=== PATIENT | male | born 1990 | race Caucasian/White ===

== ENCOUNTER 2017-06-01 15:48 | Outpatient (CLI) | payer OTHER ==
[2015-04-08 16:55] VITALS: BP 161/83
--- NOTE | 2017-06-01 18:33 | Diagnostic Imaging Report ---
SABRINA MORENO [facility] [address] [facility].[address] [address] Report Submission Date: Jun 01, 2017 4:16:15 PM CDT Patient Study Name: ADRIAN PACK Date: Jun 01, 2017 3:54:42 PM CDT Modality Type: CR Gender: M Description: CHEST : 86 Institution: [facility] Physician: SABRINA MORENO Examination: PA and lateral chest. History: Evaluate lung rangel. Comparison exams: None provided Findings: PA lateral chest demonstrate a normal cardiac and mediastinal silhouette. No focal infiltrate. No blunting of the costophrenic margins. Osseous structures are appropriate for age. Impression: No acute pulmonary process. Electronically signed on Jun 01, 2017 4:16:15 PM CDT by: Reji RILEY
== END 2017-06-01 16:00 ==
LOC: RAD 15:48
PROVIDERS: ATTEND Physician Assistant
DX: R05 Cough (principal)
CPT/HCPCS: 71020

== ENCOUNTER 2018-09-10 15:31 | Outpatient (CLI) | payer OTHER ==
[2015-04-08 16:55] VITALS: BP 161/83
--- NOTE | 2018-09-10 20:44 | Diagnostic Imaging Report ---
FANNY TREVINO [facility] [address] [facility].[address] [address] Report Submission Date: Sep 10, 2018 4:15:04 PM TOWBOAT ENGINEER Patient Study Name: ADRIAN LINDQUIST Date: Sep 10, 2018 3:37:51 PM TOWBOAT ENGINEER Modality Type: DX Gender: U Description: CHEST 2VIEW : 86 Institution: [facility] Physician: FANNY TREVINO Examination: PA and lateral chest. History: Evaluate lung rangel. cough Comparison exam: None provided. Findings: PA and lateral views of the chest demonstrates a normal cardiac and mediastinal silhouette. No focal infiltrate. No blunting of the costophrenic margins. Osseous structures are appropriate for age. Impression: No acute pulmonary process. Electronically signed on Sep 10, 2018 4:15:04 PM TOWBOAT ENGINEER by: Reji RILEY
== END 2018-09-10 15:33 ==
LOC: RAD 15:31
PROVIDERS: ATTEND Nurse Practitioner Family
DX: R05 Cough (principal); R06.02 Shortness of breath
CPT/HCPCS: 71046

== ENCOUNTER 2018-11-05 15:10 | Emergency (ER) | payer OTHER ==
[2018-11-05 15:30] VITALS: BP 193/88
--- NOTE | 2018-11-05 15:32 | ED Physician Documentation ---
Lower Extremity Injury - HISTORIAN Historian: patient - HPI Stated Complaint: L foot pain Chief Complaint: Foot Injury Onset: hours (1) Where: work Severity: mild Context: fall Associated Symptoms:: popping sensation Modifying Factors:: pain on movement - ROS CONST: no problems MS/SKIN/LYMPH: none - PAST HX Past History: none Immunizations: UTD Allergies/Adverse Reactions: Allergies Allergy/AdvReac Type Severity Reaction Status Date / Time No Known Drug Allergies Allergy Verified 11/05/18 15:27 - SOCIAL HX Smoking History: non-smoker Alcohol Use: none Drug Use: none - FAMILY HX Family History: none - VITAL SIGNS Vital Signs: Vital Signs Temp Pulse Resp BP Pulse Ox 98.5 F 89 16 193/88 99 11/05/18 15:10 11/05/18 15:10 11/05/18 15:10 11/05/18 15:10 11/05/18 15:10 - REVIEWED ASSESSMENTS Nursing Assessment Reviewed: Yes Vitals Reviewed: Yes ED Results Lab/Radiology - Radiology Radiology Impressions: EXAMINATION: FOOT 3 VIEWS OR MORE HISTORY: twisted foot (Hx) COMPARISON: None FINDINGS: There is a nondisplaced fracture of the proximal fifth metatarsal. The joint spaces are preserved. Bone density is normal. IMPRESSION: Nondisplaced proximal fifth metatarsal fracture (Reagan fracture). Electronically signed on Nov 05, 2018 4:12:36 PM CDT by: Chong Disla EXAMINATION: ANKLE 3 VIEWS OR MORE HISTORY: twisted ankle COMPARISON: None FINDINGS: The osseous structures of the ankle are intact and well aligned without acute fracture or dislocation. The joint spaces are preserved. Bone density is normal. A small calcaneal spur is noted. IMPRESSION: No acute fracture or dislocation identified in the ankle. Electronically signed on Nov 05, 2018 4:12:30 PM CDT by: Chong Disla - Orders Orders: ED Orders Category Date Time Status FOOT 3 VIEWS OR MORE [RAD] Stat Exams 11/05/18 Ordered LEFT ANKLE [ANKLE 3 VIEWS OR MORE] [RAD] Stat Exams 11/05/18 Ordered Lower Extremities Injury Phy - Physical Exam General Appearance: no acute distress, alert Hips: N/A: non-tender, normal inspection, normal range of motion, no evidence of injury, bone tenderness, deformity, ecchymosis, limited range of motion, nodules, pain, soft tissue tenderness, swelling, other Legs: N/A: non-tender, normal inspection, normal range of motion, no evidence of injury, abrasions, bone tenderness, deformity, ecchymosis, joint effusion, limited range of motion, nodules, pain, soft tissue tenderness, swelling Knees: N/A: non-tender, normal inspection, normal range of motion, no evidence of injury, bone tenderness, deformity, ecchymosis, joint effusion, nodules, pain , soft tissue tenderness, swelling Ankle: right: limited range of motion, pain, soft tissue tenderness, left: bone tenderness, bilateral: non-tender, normal inspection, normal range of motion, no evidence of injury, ecchymosis, joint effusion, nodules, swelling, other Foot: right foot: non-tender, normal inspection, normal range of motion, no evidence of injury, left foot: bone tenderness, deformity, limited range of motion, pain, soft tissue tenderness, swelling, N/A: ecchymosis, infection, nail injury, nodule Gait: limited by pain Neuro/Vascular/Tendon: no vascular compromise Head/ENT: nml inspection Neck/Back: nml inspection Resp/CVS: chest non-tender, breath sounds nml, heart sounds nml, no resp. distress, lungs clear Abdomen: non-tender Discharge Clincal Impression: Nondisp fracture of fifth left metatarsal bone with routine healing Qualifiers: Fracture type: closed Qualified Code(s): S92.355D - Nondisplaced fracture of fifth metatarsal bone, left foot, subsequent encounter for fracture with routine healing Referrals: Emanuel Pollard MD [Primary Care Provider] - 2 Days Comments: 1. Walking boot - try to stay off foot 2. OTC meds as directed as needed for pain 3. Follow up with Dr Hastings at 945 in am or call out pt at 0830 for co nfirmation [phone] 4. Keep elevated 5. Return to ER for any increasing concerns Condition: Stable Disposition: 01 HOME, SELF-CARE Decision to Admit: NO Date of Decison to Admit: 11/05/18 Decision Time: 16:42
--- NOTE | 2018-11-05 16:18 | Diagnostic Imaging Report ---
ERON JENSEN [facility] [address] [facility] [address] [address] [place], [place]. [address] Report Submission Date: Nov 05, 2018 4:12:30 PM CDT Patient Study Name: ADRIAN LINDQUIST Date: Nov 05, 2018 3:36:00 PM CDT Modality Type: DX Gender: U Description: ANKLE 3 VIEWS OR MORE : 86 Institution: [facility] Physician: ERON EJNSEN EXAMINATION: ANKLE 3 VIEWS OR MORE HISTORY: twisted ankle COMPARISON: None FINDINGS: The osseous structures of the ankle are intact and well aligned without acute fracture or dislocation. The joint spaces are preserved. Bone density is normal. A small calcaneal spur is noted. IMPRESSION: No acute fracture or dislocation identified in the ankle. Electronically signed on Nov 05, 2018 4:12:30 PM CDT by: Chong RILEY
--- NOTE | 2018-11-05 16:18 | Diagnostic Imaging Report ---
ERON JENSEN [facility] [address] [facility] [address] [place], [place]. [address] Report Submission Date: Nov 05, 2018 4:12:36 PM CDT Patient Study Name: ADRIAN LINDQUIST Date: Nov 05, 2018 3:37:00 PM CDT Modality Type: DX Gender: U Description: FOOT 3 VIEWS OR MORE : 86 Institution: [facility] Physician: ERON JENSEN EXAMINATION: FOOT 3 VIEWS OR MORE HISTORY: twisted foot (Hx) COMPARISON: None FINDINGS: There is a nondisplaced fracture of the proximal fifth metatarsal. The joint spaces are preserved. Bone density is normal. IMPRESSION: Nondisplaced proximal fifth metatarsal fracture (Reagan fracture). Electronically signed on Nov 05, 2018 4:12:36 PM CDT by: Chong RILEY
[2018-11-05] MEDS: IBUPROFEN 400 MG TABLET PO ONE (16:55)
== END 2018-11-05 17:00 | disposition home or self-care (01) ==
LOC: ED 15:10
DX: S92.355A Nondisplaced fracture of fifth metatarsal bone, left foot, initial encounter for closed fracture (principal); X58.XXXA Exposure to other specified factors, initial encounter; Y93.02 Activity, running; Y92.89 Other specified places as the place of occurrence of the external cause; Y99.0 Civilian activity done for income or pay
CPT/HCPCS: 29515; 73610; 73630; 99283; 99284

== ENCOUNTER 2018-11-06 09:23 | Outpatient (CLI) | payer OTHER ==
[2018-11-05 15:30] VITALS: BP 193/88
--- NOTE | 2018-11-07 17:43 | History and Physical Report ---
CHIEF COMPLAINT: Left foot fifth metatarsal fracture (Reagan). 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 He states that an alarm went off and in the commotion he, I believe, tripped and rolled his ankle causing an injury to the outside of his foot. He heard an audible pop. The patient was sure that he had probably broken his foot. The patient came to the emergency room and was seen and x-rays were taken demonstrating a fracture of the 5th metatarsal base. The patient was placed in a boot and sent to see me in outpatient clinic on 11/06/18. The patient does not admit to any other concerns or problems with the feet outside of some itching in the feet that he has had for awhile now. The patient does not admit to any fevers, chills, nausea, vomiting, shortness of breath or chest pain at this time. PAST MEDICAL HISTORY: The patient denies being diabetic, hepatitis, bleeding disorders, AIDS or HIV, any history of anesthesia problems as he has no surgical history, no cardiovascular disease, no COPD or pulmonary disease, no history of stroke or substance abuse. The patient does admit to having a history of tobacco use and smoking about half a pack per day but he states that he has quit for over 1 year now. The patient admits only rare ethyl alcohol use. He presents today with evidence of hypertension but this is unknown to the patient previously and he is not on medicine for it. PAST SURGICAL HISTORY: Negative. FAMILY HISTORY: Mother with diabetes type 2 and hypertension, and also states that she would not wake up very well after anesthesia in the past when she was put under general she several hours later would wake up during the night. A sister has report of hypertension issues as well. 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 He does not smoke as he quit over a year ago and admits only rare alcohol use. REVIEW OF SYSTEMS: No overall issues per the patient. Skin: The patient admits xerosis in the feet, and no rashes that he is aware of. He admits mild dark spots on his feet at times. Eyes: The patient uses glasses and denies any recent vision changes. Cardiovascular: No palpitations or chest pain. Gastrointestinal: No pain or blood with bowel movements or with urination. Neurologic: No nerve sensation loss or abnormalities. Genitourinary: No pain with urination or blood in the urine. Hematologic: No blood disorders that he is aware of. Ears, nose and throat: No masses, sore throat or hearing issues or hearing loss of any kind. Pulmonary: No shortness of breath. Musculoskeletal: Left foot pain from recent injury 2 days before. Psychiatric: No depression or anxiety. CURRENT MEDICATIONS: The patient takes allergy medications consisting of Azelastine 0.1% spray as well as montelukast 10 mg tablets. ALLERGIES/REACTIONS: NO KNOWN DRUG ALLERGIES. PERTINENT PHYSICAL EXAM: Head and neck: Atraumatic, normocephalic. Eyes: Extraocular muscles intact. Heart: Normal S1 and S2 rhythm. No atrial fibrillation. Neurologic: Light touch sensation is intact to the toes and lower legs and are symmetric in sensation. Ears, nose and throat: There are no masses or skin lesions in these areas, nor any tracheal deviation or abnormality in the mouth upon visual exam. Lungs: Clear to auscultation bilaterally. Vascular: 2+ DP and PT pulses, left foot. Capillary refill time is less than 3 seconds to the toes, left foot. There is moderate edema noted in the left foot. Lymph: There is no palpable lymph nodes around the ear or under the jaw bilaterally. Dermatologic: There are a moderate amount of xerotic changes as well as overall slight redness noted especially on the plantar aspect of the left foot. The patient also has small what look like punctate scabs/eschars and he is not sure where those come from but they come and go. The patient admits to some itchiness in the feet bilaterally and the right foot is supposedly the same as the left with regards to this. The patient also has maceration and slight open superficial wounds between some of the toes. He was encouraged to use iodine in between the toes going forward. We will consider treatment of this tinea pedis mainly after we get him taken care of from surgery and recovery. Musculoskeletal: There is pain upon palpation noted along and around the 5th metatarsal base area of the left foot. The patient has no other gross abnormalities noted, left foot. ASSESSMENT AND PLAN: 1. Left fifth metatarsal fracture, nondisplaced, acute. X-rays were reviewed with the patient demonstrating the fracture at the base of the fifth metatarsal, left foot. This is nondisplaced but due to the location of it being a Reagan fracture at the diaphyseal-metaphyseal junction a discussion was had with the patient regarding an increased likelihood that this may not heal on its own due to location. The patient understands that we have an option of conservative treatment and casting versus open reduction, internal fixation to place a screw across this or possible plate and screws if necessary. The patient has decided to go forward with an open reduction, internal fixation of the left fifth metatarsal fracture at this time to increase his chances and likelihood to heal this fracture. The patient had an in depth discussion today regarding the risks and benefits of surgery that include but are not limited to bleeding, infection, undercorrection, overcorrection, numbness, need for additional surgery, possible nonhealing or nonunion, loss of limb and loss of life. The patient has agreed both by written and verbal consent to go forward with this surgery as described above at this time. Consent was signed and placed in the chart. A separate visual consent was gone over with the patient with visual demonstration of a plan for the placement of a screw across the fracture site or plate and screws/pins as needed. The patient visualized these illustrations and signed understanding the plan. He knows that if there is ever any complications with the hardware that we can take it out once everything is all healed. Further discussion was had with the patient regarding postoperative recovery of being in a splint for about 1-1/2 weeks followed by a below-knee cast for likely about 4 weeks but up to 6 weeks perhaps. The patient knows that we will then transfer him into a shoe at that time. He will have serial casting and x-rays about every 2 weeks. The patient was also informed that I will be out of town through the through the . We will plan on tentatively doing surgery on the and seeing him the following week to make sure he is doing well and put him in a cast at that time. He will be in that cast for approximately 2 weeks or just short of, and we will take the stitches out at that time which will put him at about 2-1/2 to 3 weeks postop. This will ensure good healing of the skin and we will do x-rays and put him in a cast again. This is the overall plan that is tentative and the patient understands that I will not guarantee that we can do surgery here, nor the date and time until we can get approval through insurance or Workmens Compensation. The patient gave me paperwork to sign for Workmens Compensation and that was signed today and returned back to the patient later in the day. The patient received that paperwork from the front office on 11/06/18 in the afternoon. The patient understood preop instructions as well regarding having not to eat or drink anything after midnight the night before. PROCEDURE #1: The patient had appropriate padding and posterior mold splint applied to the left foot to protect it at this time. He was also dispensed crutches and encouraged to stay off the foot as much as possible but if he needs to help balance, he can put his heel down. The patient understands this and an appropriate Reagan compression dressing was put on as part of the posterior mold splint. The patient had no further questions and his mother was in the room and were grateful for the time that I took to describe and explain everything. They feel confident that they are making a good decision but state that he will talk with his work to make sure that everything will work out to get this done. I do not feel the patient is able to go back to work yet due to the nature of his injury and the required duties at work that were given to me on the list. We will continue to evaluate his progress and determine when he will be able to go back to work. The patient had no further questions and we will plan on seeing him in surgery next week on Sunday as long as we can get all approval and coverage figured out. We will notify the patient of any changes. He knows to put a little bit of weight just on the heel to keep some motion happening with his leg to help prevent any blood clot. He was discouraged from taking any aspirin at this time as we would like to keep him off the aspirin until surgery is performed and he was instructed that he will then be taking 325 mg b.i.d. daily probably for 2-3 weeks. We will make sure we instruct him again in aspirin use for DVT prophylaxis after surgery. He will also receive labs that Anesthesia will require the morning of surgery. After discussion with Anesthesia he does not require any sort of clearance at this time as he is a very healthy individual. Giles Reid.P.M. (Dictated/Not Signed) ZOHREH/damaris Job#: [id number] MTDD
== END 2018-11-06 09:25 ==
LOC: POD 09:23
PROVIDERS: ATTEND Podiatrist Foot & Ankle Surgery
DX: S92.335A Nondisplaced fracture of third metatarsal bone, left foot, initial encounter for closed fracture (principal); W18.40XA Slipping, tripping and stumbling without falling, unspecified, initial encounter; Y93.9 Activity, unspecified; Y92.149 Unspecified place in prison as the place of occurrence of the external cause; Y99.8 Other external cause status
CPT/HCPCS: 29405; 99204; A4554